=== PATIENT | female | born 1935 | race Caucasian/White ===

== ENCOUNTER → 2021-03-11 | Outpatient (CLI) | payer MEDICARE, BC ==
[~2021-03-11] MED LIST: AMBIEN5 MG PO; AMOX TR-K CLV1 EAC4 PO; ASPIR 8181 MG PO; BACTRIM DS TAB1 EACH PO; CALCIUM 500 +1 EACH PO; CARAFATE1 GM PO; COZAAR100 MG PO; ESTRACE42.5 GM VG; FAMOTIDINE40 MG PO; FOLIC ACID 1 MG1 MG PO; KEFLEX CAP 500500 MG PO; LEVAQUIN750 MG PO; LOSARTAN-HCTZ1 EACH PO; NORCO 5-325 TA1 EACH PO; NORVASC10 MG PO; PROTONIX40 MG PO; RESTASIS 0.05%1 EACH EYEBOTH; SYNTHROID100 MCG PO; THERAGRAN M TAB1 EA PO; TOPROL XL25 MG PO; VITAMIN B-121000 MCG PO; VITAMIN D31000 UNI1 PO; ZANAFLEX4 MG PO; ZOFRAN4 MG PO
== END ==
LOC: MAMO 12:41
DX: R92.8 Other abnormal and inconclusive findings on diagnostic imaging of breast (principal)
CPT/HCPCS: 76641-RT; 77065; G0279

== ENCOUNTER → 2021-07-16 | Outpatient (CLI) | payer MEDICARE, BC | LOC: EROP 15:31 | DX: U07.1 COVID-19 (principal) | CPT/HCPCS: 96365 ==

== ENCOUNTER → 2021-10-14 | Outpatient (CLI) | payer MEDICARE, BC ==
[~2021-10-14] MED LIST changes: +ALDACTONE25 MG PO; +CEFUROXIME250 MG PO; +CLINDAMYCIN HC300 MG PO; +HYDRALAZINE HC100 MG PO; +HYDROCODON-ACE1 EAC4 PO; +LEVOFLOXACIN500 MG PO; +NORVASC5 MG PO; +VITAMIN D325 MC6 PO
[2021-10-14 10:23] LABS: HEMOGLOBIN 11.7 gm/dl (12.3-15.3); RED BLOOD COUNT 3.66 M/UL (4.00-5.10); WHITE BLOOD COUNT 12.1 K/UL (4.5-11.0)
== END ==
LOC: LAB 09:51
PROVIDERS: Internal Medicine Cardiovascular Disease
DX: Z45.010 Encounter for checking and testing of cardiac pacemaker pulse generator [battery] (principal); I49.5 Sick sinus syndrome; I10 Essential (primary) hypertension
CPT/HCPCS: 36415; 80048; 85025

== ENCOUNTER → 2021-10-15 | Outpatient (CLI) | payer MEDICARE, BC | END | disposition home or self-care (01) | LOC: CATH 07:31 | DX: Z45.010 Encounter for checking and testing of cardiac pacemaker pulse generator [battery] (principal); I49.5 Sick sinus syndrome; I12.9 Hypertensive chronic kidney disease with stage 1 through stage 4 chronic kidney disease, or unspecified chronic kidney disease; N18.9 Chronic kidney disease, unspecified; F17.210 Nicotine dependence, cigarettes, uncomplicated; E03.9 Hypothyroidism, unspecified; M19.90 Unspecified osteoarthritis, unspecified site; U07.1 COVID-19; K21.9 Gastro-esophageal reflux disease without esophagitis; M81.0 Age-related osteoporosis without current pathological fracture; Z88.1 Allergy status to other antibiotic agents; Z79.82 Long term (current) use of aspirin; Z79.2 Long term (current) use of antibiotics; Z79.899 Other long term (current) drug therapy; Z90.710 Acquired absence of both cervix and uterus | CPT/HCPCS: 33213; 99152; 99153; C1785; J1200; J2250; J3010; J3370; J7040; J7050 ==